=== PATIENT | female | born 1965 | race Caucasian/White ===

== ENCOUNTER → 2018-01-08 21:11 | Outpatient (CLI) | payer OTHER, SELFPAY ==
[2018-01-08 22:10] LABS: Thyroid Stim Hormone (TSH) 0.71 uIU/mL (0.358-3.74)
== END ==
PROVIDERS: Visit Provider Nurse Practitioner
DX: E03.9 Hypothyroidism, unspecified (principal)
CPT/HCPCS: 84443

== ENCOUNTER → 2018-05-12 06:58 | Outpatient (CLI) | payer OTHER, SELFPAY ==
[2018-05-12 18:17] VITALS: BMI 38.0
[2018-05-13 00:35] LABS: Absolute Lymphocyte Count 2.33 X10^3/ul (0.83-4.51); Absolute Neutrophil Count 2.8 X10^3/uL (2.0-7.7); Basophil# 0.03 X10^3/uL; Basophil% 0.5 % (0-1); Eosinophil# 0.14 X10^3/uL; Eosinophils% 2.4 % (0-5); Hematocrit 43.2 % (37-47); Hemoglobin 14.6 g/dl (12.0-15.0); Lymphocyte # 2.33 X10^3/ul (4.0); Mean Corp Hgb Conc 33.8 g/gl (32-36); Mean Corpuscular Hgb 32.1 pg (27.0-32.0); Mean Corpuscular Volume 94.9 fL (81-99); Mean Platelet Vol. 11.5 fl (6.2-12.0); Monocyte# 0.52 X10^3/uL; Monocyte% 8.9 % (0-10); Neutrophil # 2.79 X10^3/uL (2.7-7.7); Platelet Count 273 K/mm3 (150-450); RBC Distribution Width CV 12.1 % (11.6-14.6); RBC Distribution Width SD 41.3 fl (35.1-43.9); Red Blood Count 4.55 M/mm3 (4.2-5.4); White Blood Count 5.8 K/mm3 (4.4-11.0)
[2018-05-13 00:39] LABS: ALB/GLOB Ratio 1.2 RATIO (0.9-2.4); AST(SGOT) 20 U/L (15-37); Alanine Aminotransfer ALT/SGPT 31 U/L (13-56); Albumin, Serum 4.1 g/dL (3.2-5.0); Alkaline Phosphatase 68 U/L (45-117); Anion Gap 8 (5-15); BUN 10 mg/dL (7-18); Calcium,Total 8.5 mg/dL (8.5-10.1); Chloride 106 mmol/L (98-107); Cholesterol 210 mg/dL (200); Creatinine, Serum 0.84 mg/dL (0.55-1.02); EST Glomerular Filtration Rate 76 mL/min (>60); Est Glom Filt Rate - Afr Amer 92 mL/min (>60); Globulin 3.4 g/dL (2.2-4.2); Glucose 90 mg/dL (74-106); High Density Lipoprotein 73 mg/dL; Potassium 3.9 mmol/L (3.5-5.1); Protein, Total 7.5 g/dL (6.4-8.2); Sodium Level 138 mmol/L (136-145); Triglycerides 122 mg/dL; Very Low Density Lipoprotein 24 mg/dL (5-40)
[2018-05-13 00:39] LABS: POSITIVE COUNT NO; POSITIVE DIFFERENTIAL NO; POSITIVE MORPHOLOGY NO
--- OUTSIDE RECORDS SUMMARY | 2018-08-14 06:37 | XMS RPT_ITS ---
:1965 Author Organization [facility] Care Team Providers Name Role Phone PROVIDER, UNKNOWN Attending Unavailable PROVIDER, UNKNOWN Referring Unavailable Rasmussen, Bela Primary Care Unavailable Rasmussen, Bela Attending Unavailable PROVIDER, UNKNOWN Referring Unavailable Rasmussen, Bela Primary Care Unavailable Rasmussen, Bela ANIMAL NURSERY WORKER-C Attending Unavailable Primay Care Physicia, No Primary Care Unavailable Rasmussen, Bela ANIMAL NURSERY WORKER-C Referring Unavailable Rasmussen, Bela ANIMAL NURSERY WORKER-C Attending Unavailable Primay Care Physicia, No Primary Care Unavailable PROBLEMS PROBLEMS DATE TYPE CONDITION / CODE ATTENDING STATUS SOURCE 05/13/2018 Unknown Z00.00 - Encounter Samuel Rasmussen for general adult Bela ANIMAL NURSERY WORKER-C [facility] examination Repository without abnormal findings / Z00.00(ICD-10) 09/23/2017 Admitting Nontoxic single Grady, Active [facility] Diagnosis thyroid nodule / Bela System E04.1(ICD-10) Repository 09/16/2017 Admitting Hypertensive Unknown Active [facility] Diagnosis urgency / System I16.0(ICD-10) Repository 09/16/2017 Admitting Other specified Unknown Active [facility] Diagnosis disorders of nose System and nasal sinuses Repository / J34.89(ICD-10) 09/16/2017 Admitting Stress, not Unknown Active [facility] Diagnosis elsewhere System classified / Repository Z73.3(ICD-10) 09/16/2017 Admitting Essential Unknown Active [facility] Diagnosis (primary) System hypertension / Repository I10(ICD-10) 09/16/2017 Admitting Anxiety disorder, Unknown Active [facility] Diagnosis unspecified / System F41.9(ICD-10) Repository PROCEDURES PROCEDURES No Procedure Records FoundRESULTS RESULTS OFFICE VISIT Observed: 05/12/2018 Status: F Source: [place] 8:24 PM [facility] [address] [place] [address] OFFICE VISIT Date of Service: 05/12/18 MR#: [id number] Acct: [id number] Name: AHMET FISCHER Rep #: [id number] : 1965 Provider: JORGE LUIS Rasmussen Age/Sex: 52/F Location: [facility] Status: Signed Intake Vital Signs05/12/18 Height 5 ft 3 in 05/12/18 Weight: 215 lb Intake Visit Reasons: WORK PE Allergies Penicillins Allergy (Intermediate, Unverified 05/12/18 18:20) Hives Sulfa (Sulfonamide Antibiotics) Allergy (Intermediate, Unverified 05/12/18 18:20) fever, rash lisinopril Adverse Reaction (Severe, Verified 01/08/18 15:43) cough Medications losartan 100 mg tablet 100 mg PO QDAY #90 tab 01/08/18 [Rx Confirmed 01/08/18] valacyclovir 1 gram tablet 2,000 mg PO BID tab 01/08/18 [History Confirmed 01/08/18] levothyroxine 50 mcg tablet 50 mcg PO QDAY #90 tab 05/08/18 [Rx] thyroid (pork) 60 mg tablet 60 mg PO QDAY #90 tab 05/08/18 [Rx] PFSH Medical History Hypothyroid (Acute) Hypertension (Chronic) Family History Father Heart disease valve replacement and aneurysm Grandmother Heart disease maternal Grandfather Heart disease paternal Other Non-Hodgkin lymphoma HPI HPI (General) HPI HPI: AHMET FSICHER, is a 52 F who presents to the office today for well exam for work ROS Const Constitutional: No anorexia, body ache, chills, excessive sweating, fatigue, fever(s), frequent falls, headache(s), decreased energy, malaise, night sweats, snoring, weakness, weight change, sleep problems, abnormal sleep pattern, change in appetite or other Eyes Eyes: No blurry vision, change in vision, double vision, discharge, dry eyes, bulging eyes, floaters, visual disturbances, eye pain, light sensitivity, spots in vision, tunnel vision or other ENT ENT: No headache(s), abnormal hearing, ear pain, ear discharge, ear pressure, hearing loss, tinnitus, dizziness/vertigo, balance problems, nosebleed/epistaxis, nasal congestion, nasal obstruction, nose pain, sinus pressure, sinus pain, nasal discharge, post nasal drip, facial pain, dental pain, dry mouth, difficulty swallowing, bad breath, hoarseness, lip swelling, mouth lesions, mouth pain, neck pain, sore throat, tongue swelling, throat swelling or other Resp Respiratory: No snoring, cough, change in phlegm color, chest congestion, excessive phlegm production, hemoptysis, pain on inspiration, shortness of breath, pain with cough, stridor, wheezing or other Cardio Cardiology: No excessive sweating, chest pain at rest, chest pain with exertion, leg pain with exertion, shortness of breath, dyspnea on exertion, generalized swelling, irregular heart rhythm, lightheadedness, orthopnea, radiating jaw, neck or arm pain, fast heart rate, slow heart rate, palpitations or other Gastro GI: No other, No Difficulty Swallowing, No abdominal pain, No belching, No bloating, No change in bowel habits, No change in stool character, No coffee ground emesis, No constipation, No cramping, No diarrhea, No heartburn, No feeling full early, No excessive flatus, No incontinent of stools, No Vomiting blood/hematemesis, No Blood in stool, No loose stools, No Black,tarry stools, No nausea/dyspepsia, No pain with swallowing, No vomiting, No hemorrhoids, No rectal pain Genitourinary: No urinary frequency, difficulty urinating, burning urination, painful urination, urinary urgency or blood in urine Musc Musculoskeletal: No neck pain, abnormal walking, joint pain, back pain, deformity, joint swelling, limited range of motion, loss of height, muscle cramps, muscle weakness, decreased muscle mass, body aches, numbness, radiating pain into limb, stiffness, tingling or other Skin Skin: No acne, hair loss, change in hair, nail changes, boil, change in skin color, dry skin, redness, excessive hair growth, yellowing of the skin, lesions, itching, rash, skin pain, skin ulcer, sores, skin swelling, wounds or other Breast Breast: No other Neuro Neurology: No frequent falls, headache(s), weakness, visual disturbances, abnormal hearing, abnormal walking, numbness, tingling, abnormal movements, abnormal speech, behavioral changes, confusion, unsteady gait/balance, dizziness, lack of coordination, loss of vision, memory loss, restless legs, fainting, tremor(s) or other Psych Psychiatric: No abnormal sleep pattern, No change in appetite, No behavioral changes, No confusion, No memory loss, No lack of enjoyment, No anxiety, No depression, No difficulty concentrating, No hopelessness, No irritability, No mood swings, No panic attacks, No paranoia, No Thoughts of harming yourself/Others, No hallucinations, No other Endo Endo: No excessive sweating, No fatigue, No other Aller/Imm Allergy/Immunologic: No lip swelling, tongue swelling, throat swelling, wheezing or itchy eyes Exam Const Constitutional: Yes cooperative, Yes healthy appearing Orientation: Yes alert, awake and oriented x3 HENMT Head: Yes normocephalic Ear: Yes hearing grossly normal bilaterally Neck Neck: normal visual inspection Thyroid: thyroid normal Eyes General: Yes appearance normal, both eyes and all related structures Chest Chest palpation AND inspection: Yes normal inspection of the chest Resp Effort AND Inspection: No stridor Auscultation: Yes clear to auscultation bilaterally Cardio Palpitation: Yes normal PMI Rate: Yes regular rate Rhythm: Yes regular rhythm GI Inspection: Yes normal to inspection Auscultation: Yes normal bowel sounds Rectal Exam: No hemorrhoids Musc Cervical Spine: Yes cervical ROM normal Thoracic/Lumbar Spine: Yes thoracic and lumbar spine normal to inspection Skin General: no rashes or lesions noted Lesions: Yes no lesions Extrem General: Yes normal to inspection Neuro General: Yes alert and oriented x3 Motor: No weakness Psych Appearance: Positive grossly normal Mood: Positive congruent mood Affect: Positive normal affect Assessment AND Plan Problems 1. Wellness examination Z00.00 Patient Instructions forms filled out will call with the results Orders Orders: Coding Level of Care Code Off vis,est,level 3 Diagnoses Wellness examination Z00.00 05/12/182023 <Electronically signed by Bela QUINTEROS> Date Bela Rasmussen ANIMAL NURSERY WORKERJeanineC CC: COMPREHENSIVE METABOLIC Collected: 05/12/2018 Status: F Source: [place] 7:45 PM [facility] REPOSITORY TYPE CODE TESTS RESULT OUT OF RANGE REFERENCE UNITS LAB L501.0100 74-106 mg/dL Normal GLU 90 Result Comment: Please note revised GLUCOSE reference range effective 2017. LAB L501.1000 7-18 mg/dL Normal BUN 10 LAB L501.1100 0.55-1.02 mg/dL Normal CREAT,SERUM 0.84 Result Comment: The validity of the calculated GFR AND GFRAA in patients over 70 years has not been determined. Clinical correlation is essential. LAB L501.1110 >60 mL/min Normal EST GFR 76 Result Comment: Non- GFR Calc LAB L501.1115 >60 mL/min Normal EST GFR - AA 92 Result Comment: GFR Calc LAB L501.1300 10-20 RATIO Normal BUN/CRE 12.0 LAB L501.1500 6.4-8.2 g/dL T Normal PROT 7.5 LAB L501.1800 3.2-5.0 g/dL Normal ALB 4.1 LAB L501.1950 2.2-4.2 g/dL Normal GLOB 3.4 LAB L501.2000 0.9-2.4 RATIO Normal A/G 1.2 LAB L501.2200 8.5-10.1 mg/dL CA Normal 8.5 LAB L501.4100 15-37 U/L Normal AST 20 LAB L501.4305 45-117 U/L Normal ALK P 68 LAB L501.4405 13-56 U/L Normal ALT 31 LAB L501.4600 0.20-1.00 mg/dL T Normal BILI 0.40 LAB L501.5300 136-145 mmol/L NA Normal 138 LAB L501.5600 3.5-5.1 mmol/L K Normal 3.9 LAB L501.5900 98-107 mmol/L CL Normal 106 LAB L501.6100 21.0-32.0 mmol/L Normal CO2 24.0 LAB L501.6200 5-15 Normal GAP 8 Performed By: #### L500.4050, L500.4100 #### [facility] [address] [place], [address] LIPID PROFILE Collected: 05/12/2018 Status: F Source: [place] 7:45 PM [facility] REPOSITORY TYPE CODE TESTS RESULT OUT OF RANGE REFERENCE UNITS LAB L501.4900 200 mg/dL High CHOL 210 Result Comment: <200 mg/dL Desirable 200-240 mg/dL Borderline >240 mg/dL High Risk LAB L501.5000 mg/dL Normal TRIG 122 Result Comment: The drugs N-Acetylcysteine and Metamizole may falsely depress this assay. Serum Triglycerides Reference Interval Normal <150 mg/dL Borderline high 150 - 199 mg/dL High 200 - 499 mg/dL Very High > or = 500 mg/dL LAB L501.6400 mg/dL Normal HDL 73 Result Comment: The drugs N-Acetylcysteine and Metamizole may falsely depress this assay. Reference Range HDL <40 mg/dL Low HDL Cholesterol HDL >or= 60 mg/dL High HDL Cholesterol LAB L501.6500 0-130 mg/dL Normal LDL 113 LAB L501.6600 5-40 mg/dL Normal VLDL 24 Performed By: #### L500.4050, L500.4100 #### [facility] [address] [place], [address] CBC W/DIFF, AUTOMATED Collected: 05/12/2018 Status: F Source: [place] 12:00 AM [facility] REPOSITORY TYPE CODE TESTS RESULT OUT OF RANGE REFERENCE UNITS LAB L100.1000 4.4-11.0 K/mm3 Normal WBC 5.8 LAB L100.1200 4.2-5.4 M/mm3 Normal RBC 4.55 LAB L100.1300 12.0-15.0 g/dl Normal HGB 14.6 LAB L100.1400 37-47 % Normal HCT 43.2 LAB L100.1500 81-99 fL Normal MCV 94.9 LAB L100.1600 27.0-32.0 pg High MCH 32.1 LAB L100.1700 32-36 g/gl Normal MCHC 33.8 LAB L100.1810 11.6-14.6 % Normal RDW CV 12.1 LAB L100.1820 35.1-43.9 fl Normal RDW SD 41.3 LAB L100.1900 150-450 K/mm3 Normal PLT 273 LAB L100.2000 6.2-12.0 fl Normal MPV 11.5 LAB L100.2100 47-70 % Normal NEUT% 48.0 LAB L100.2200 19-41 % Normal LY% 40.0 LAB L100.2300 0-10 % Normal MONO% 8.9 LAB L100.2400 0-5 % Normal EO% 2.4 LAB L100.2500 0-1 % Normal BASO% 0.5 LAB L100.2550 0.0-0.9 % Normal IM GRAN % 0.200 Result Comment: IG% - Immature Granulocytes (promyelocytes, myelocytes and metamyelocytes) > 1% indicates that a LEFT SHIFT is Present. LAB L100.2620 2.0-7.7 X10 3/uL Normal Absolute Neut 2.8 LAB L100.2720 0.83-4.51 X10 3/ul Normal Absolute Lymph 2.33 Performed By: #### L100.0100 #### [facility] [address] [place], [address] OFFICE VISIT Observed: 01/08/2018 Status: F Source: [place] 10:30 PM [facility] [address], [place] [id number] OFFICE VISIT Date of Service: 01/08/18 MR#: [id number] Acct: [id number] Name: Ahmet Fischer Rep #: [id number] : 1965 Provider: JORGE LUIS Rasmussen Age/Sex: 52/F Location: [facility] Status: Signed Intake Vital Signs01/08/18 Height 5 ft 3.5 in 01/08/18 Weight: 196 lb Intake Visit Reasons: F/U MED AND BLOOD Accompanied by: self Is patient in pain?: No Allergies lisinopril Adverse Reaction (Severe, Verified 01/08/18 15:43) cough Medications levothyroxine 50 mcg tablet 50 mcg PO QDAY 01/08/18 [History Confirmed 01/08/18] losartan 100 mg tablet 100 mg PO QDAY #90 tab 01/08/18 [Rx Confirmed 01/08/18] thyroid (pork) 60 mg tablet 60 mg PO QDAY 01/08/18 [History Confirmed 01/08/18] valacyclovir 1 gram tablet 2,000 mg PO BID tab 01/08/18 [History Confirmed 01/08/18] [facility] Medical History Hypothyroid (Acute) Hypertension (Chronic) Family History Father Heart disease valve replacement and aneurysm Grandmother Heart disease maternal Grandfather Heart disease paternal Other Non-Hodgkin lymphoma HPI HPI (General) HPI HPI: Ahmet Fischer, is a 52 F who presents to the office today for labs and go over her BP . That has done well on the losartan did not tolerate the Lisinopril The fluttering in the chest is gone c/o of a strain and burning in the L top of the shoulder into the L side of the neck ROS Const Constitutional: Positive for other (hot flashes); no anorexia, body ache, chills, excessive sweating, fatigue, fever(s), frequent falls, headache(s), decreased energy, malaise, night sweats, snoring, weakness, weight change, sleep problems, abnormal sleep pattern or change in appetite Eyes Eyes: No blurry vision, change in vision, double vision, discharge, dry eyes, bulging eyes, floaters, visual disturbances, eye pain, light sensitivity, spots in vision, tunnel vision or other ENT ENT: No headache(s), abnormal hearing, ear pain, ear discharge, ear pressure, hearing loss, tinnitus, dizziness/vertigo, balance problems, nosebleed/epistaxis, nasal congestion, nasal obstruction, nose pain, sinus pressure, sinus pain, nasal discharge, post nasal drip, facial pain, dental pain, dry mouth, difficulty swallowing, bad breath, hoarseness, lip swelling, mouth lesions, mouth pain, neck pain, sore throat, tongue swelling, throat swelling or other Resp Respiratory: No snoring, cough, change in phlegm color, chest congestion, excessive phlegm production, hemoptysis, pain on inspiration, shortness of breath, pain with cough, stridor, wheezing or other Cardio Cardiology: No excessive sweating, chest pain at rest, chest pain with exertion, leg pain with exertion, shortness of breath, dyspnea on exertion, generalized swelling, irregular heart rhythm, lightheadedness, orthopnea, radiating jaw, neck or arm pain, fast heart rate, slow heart rate, palpitations or other Gastro GI: Yes other (hot flashes), No Difficulty Swallowing, No abdominal pain, No belching, No bloating, No change in bowel habits, No change in stool character, No coffee ground emesis, No constipation, No cramping, No diarrhea, No heartburn, No feeling full early, No excessive flatus, No incontinent of stools, No Vomiting blood/hematemesis, No Blood in stool, No loose stools, No Black,tarry stools, No nausea/dyspepsia, No pain with swallowing, No vomiting, No hemorrhoids, No rectal pain Genitourinary: No urinary frequency, difficulty urinating, burning urination, painful urination, urinary urgency or blood in urine Musc Musculoskeletal: No neck pain, abnormal walking, joint pain, back pain, deformity, joint swelling, limited range of motion, loss of height, muscle cramps, muscle weakness, decreased muscle mass, body aches, numbness, radiating pain into limb, stiffness, tingling or other Skin Skin: No acne, hair loss, change in hair, nail changes, boil, change in skin color, dry skin, redness, excessive hair growth, yellowing of the skin, lesions, itching, rash, skin pain, skin ulcer, sores, skin swelling, wounds or other Breast Breast: No other Neuro Neurology: No frequent falls, headache(s), weakness, visual disturbances, abnormal hearing, abnormal walking, numbness, tingling, abnormal movements, abnormal speech, behavioral changes, confusion, unsteady gait/balance, dizziness, lack of coordination, loss of vision, memory loss, restless legs, fainting, tremor(s) or other Psych Psychiatric: No abnormal sleep pattern, No change in appetite, No behavioral changes, No confusion, No memory loss, No lack of enjoyment, No anxiety, No depression, No difficulty concentrating, No hopelessness, No irritability, No mood swings, No panic attacks, No paranoia, No Thoughts of harming yourself/Others, No hallucinations, No other Endo Endo: No excessive sweating, No fatigue, No other Aller/Imm Allergy/Immunologic: No lip swelling, tongue swelling, throat swelling, wheezing or itchy eyes Exam Const Constitutional: Yes cooperative, Yes healthy appearing Orientation: Yes alert, awake and oriented x3 HENMT Head: Yes normocephalic Ear: Yes hearing grossly normal bilaterally Neck Neck: normal visual inspection Thyroid: thyroid normal Eyes General: Yes appearance normal, both eyes and all related structures Pupils: Yes PERRLA Chest Chest palpation AND inspection: Yes normal inspection of the chest Resp Effort AND Inspection: No stridor Auscultation: Yes clear to auscultation bilaterally Cardio Palpitation: Yes normal PMI Rate: Yes regular rate Rhythm: Yes regular rhythm GI Inspection: Yes normal to inspection Auscultation: Yes normal bowel sounds Rectal Exam: No hemorrhoids Musc Cervical Spine: Yes cervical ROM normal Thoracic/Lumbar Spine: Yes thoracic and lumbar spine normal to inspection Skin General: no rashes or lesions noted Lesions: Yes no lesions Extrem General: Yes normal to inspection Neuro General: Yes alert, oriented x3 and CN's II-XI intact bilaterally Cranial Nerves: Yes PERRLA and CN's II-XI intact bilaterally Cognition: Yes normal cognition Speech: Yes speech normal Gait: Yes normal gait Motor: No weakness Sensory Exam: Yes no sensory deficits noted and DTR'S Normal Psych Appearance: Positive grossly normal Mood: Positive congruent mood Affect: Positive normal affect Assessment AND Plan Problems 1. Hypothyroid E03.9 2. Hypertension I10 Patient Instructions take the losartan for the BP Will call with the results of the labs for the levothyroxine regulating dose Orders Orders: Medications New: 01/08/182229 <Electronically signed by Bela QUINTEROS> Date Bela QUINTEROS CC: THYROID STIM HORMONE Collected: 01/08/2018 Status: F Source: [place] (TSH) 4:05 PM [facility] REPOSITORY TYPE CODE TESTS RESULT OUT OF RANGE REFERENCE UNITS LAB L501.9520 0.358-3.74 uIU/mL Normal TSH 0.71 Performed By: #### L501.9520 #### [facility] [address] [place], [address] THYROID/PARATHYROID Observed: 09/24/2017 Status: F Source: [facility] 1:55 PM [facility] REPOSITORY Patient Name: AHMET FISCHER Ultrasound Exam Date/Time 09/23/2017 16:32:40 EDT Exam US Parathyroid Ordering Physician TOMER RASUMSSEN DORA L Accession Number [id number] CPT4 Codes 26887 () Reason For Exam THYROID DISEASE Report Ultrasound thyroid HISTORY: Thyromegaly, hypertension The right lobe of thyroid gland measures 0.8 x 0.9 x 4.0 cm. Left lobe measures 0.8 x 1.1 x 4.2 cm. Nodule 1: Size: 4 x 6 x 13 mm Composition: Solid Echogenicity: Hypoechoic Margins: Smooth and ill-defined Echogenic foci: None TI-RADS points: Four Nodule 2: Size: 3 x 5 x 8 mm Composition: Solid Echogenicity: Hypoechoic Margins: Ill-defined Echogenic foci: None TI-RADS points: Four Impression: Two nodules in the thyroid gland as described above. Follow-up ultrasound of the larger one in the right lobe is recommended. Report Dictated on Final Dictating Physician: MD BARRIENTOS MALAY Signed Date and Time: 09/24/2017 2:03 pm Signed by: MD BARRIENTOS MALAY Transcribed Date and Time: 09/24/2017 2:04 CR CHEST PORTABLE Observed: 09/16/2017 Status: F Source: [facility] 12:43 PM SYSTEM REPOSITORY Patient Name: AHMET FISCHER Diagnostic Radiology Exam Date/Time 09/16/2017 12:18:47 EDT Exam CR Chest Portable Ordering Physician MD ADRIANNE, BILL Accession Number [id number] CPT4 Codes 59720 () Reason For Exam shortness of breath Report PORTABLE CHEST CLINICAL INDICATION: Dyspnea. COMPARISON: None. TECHNIQUE: Portable AP chest. FINDINGS: Monitoring leads are identified. The heart, mediastinum, lamar, lungs and pleural spaces are normal. No osseous abnormality. IMPRESSION: No acute cardiopulmonary abnormality. Report Dictated on Final Dictating Physician: XU PHILIP DO, I Signed Date and Time: 09/16/2017 12:44 pm Signed by: XU PHILIP DO, I Transcribed Date and Time: 09/16/2017 12:45 ALLERGIES ALLERGIES DATE TYPE / CODE NAME / CODE REACTION SEVERITY SOURCE 05/12/2018 Drug Penicillins/F Hives MO [facility] Allergy/4160 [id number](RXN Hospital 63961(SNOMED ORM) Repository CT) 05/12/2018 Drug Sulfa fever, rash MO [facility] Allergy/4160 (Sulfonamide Hospital 66948(SNOMED Antibiotics)/ Repository CT) [id number](RX NORM) 01/08/2018 Drug lisinopril/F0 cough SV [facility] Allergy/4160 [id number](RXNO Hospital 02315(SNOMED RM) Repository CT) ENCOUNTERS ENCOUNTERS ADMIT/DISCHARGE ACCOUNT NUMBER ADMITTING ENCOUNTER LOCATION SOURCE CLASS 05/12/2018 [id number] [facility] ding:[facility]SPEC Repository 01/08/2018 [id number] [facility] ding:[facility] Repository 09/23/2017 [id number] [facility] Repository 09/16/[id number] [facility] [place] [address] EDRoom: System [id number]: Repository [id number] PAYERS PAYERS ENCOUNTER GUARANTOR PAYER SUBSCRIBER SOURCE 05/12/2018 AHMET [id number] MARY [facility]: [address], [place] Number: Repository [id number]: 330 [id number] [phone] () Date:[id number] [address], [place] [address]JO: 05/12/2018 Secondary NOT GIVENUNK [place] Insurance:SELF PAY [facility] Number: Effective Repository Date:2018-05-12 01/08/2018 AHMET FISCHER6768 MARY [facility] HEMM[facility]DOB: [address], [place] Number: Repository [id number]: 330 [id number] [phone] () Date:[id number] [address], [place] [address]IJ: 01/08/2018 Secondary NOT GIVENUNK [place] Insurance:SELF PAY [facility] Number: Effective Repository Date:2018-01-08 [facility]DOB: System [id number] [facility] [id number] [facility] Number: [place] Date: [id number]: () 09/16/2017 [facility]:United HemmingDOB: System [id number] [facility] [id number] [facility] Number: [place] Date: [address]Vqn: ()
== END ==
PROVIDERS: Referring Provider Nurse Practitioner; Visit Provider Nurse Practitioner
DX: Z00.00 Encounter for general adult medical examination without abnormal findings (principal)
CPT/HCPCS: 80053; 80061; 85025

== ENCOUNTER → 2019-05-14 21:09 | Outpatient (CLI) | payer OTHER, SELFPAY ==
[2019-05-14 16:04] VITALS: BMI 39.4
[2019-05-14 21:16] LABS: Absolute Lymphocyte Count 2.41 X10^3/uL (0.83-4.51); Absolute Neutrophil Count 4.5 X10^3/uL (2.0-7.7); Basophil# 0.04 X10^3/uL; Basophil% 0.5 % (0-1); Eosinophil# 0.26 X10^3/uL; Eosinophils% 3.4 % (0-5); Hematocrit 41.1 % (37-47); Hemoglobin 13.9 g/dL (12.0-15.0); Lymphocyte # 2.41 X10^3/ul (4.0); Lymphocyte % 31.1 % (19-41); Mean Corp Hgb Conc 33.8 g/dL (32-36); Mean Corpuscular Volume 94.7 fL (81-99); Monocyte# 0.59 X10^3/uL; Monocyte% 7.6 % (0-10); NRBC Flagged by Analyzer 0 % (0-5); Neutrophil # 4.45 X10^3/uL (2.7-7.7); Neutrophil % 57.3 % (47-70); Platelet Count 258 K/mm3 (150-450); RBC Distribution Width CV 11.9 % (11.6-14.6); RBC Distribution Width SD 41.7 fl (35.1-43.9); Red Blood Count 4.34 M/mm3 (4.2-5.4); White Blood Count 7.8 K/mm3 (4.4-11.0)
[2019-05-14 21:39] LABS: ALB/GLOB Ratio 1.3 RATIO (0.9-2.4); AST(SGOT) 23 U/L (15-37); Alanine Aminotransfer ALT/SGPT 38 U/L (13-56); Albumin, Serum 4.1 g/dL (3.2-5.0); Alkaline Phosphatase 68 U/L (45-117); Anion Gap 5 (5-15); BUN 13 mg/dL (7-18); BUN/Creat Ratio 13.2 RATIO (10-20); Calcium,Total 9.3 mg/dL (8.5-10.1); Chloride 109 mmol/L (98-107); Cholesterol 209 mg/dL (200); Creatinine, Serum 0.98 mg/dL (0.55-1.02); EST Glomerular Filtration Rate 63 mL/min (>60); Est Glom Filt Rate - Afr Amer 76 mL/min (>60); Globulin 3.2 g/dL (2.2-4.2); Glucose 97 mg/dL (74-106); High Density Lipoprotein 76 mg/dL; Potassium 4.1 mmol/L (3.5-5.1); Protein, Total 7.3 g/dL (6.4-8.2); Sodium Level 141 mmol/L (136-145); Thyroid Stim Hormone (TSH) 0.23 uIU/mL (0.358-3.74); Triglycerides 127 mg/dL; Very Low Density Lipoprotein 25 mg/dL (5-40)
== END ==
PROVIDERS: Referring Provider Nurse Practitioner; Visit Provider Nurse Practitioner
DX: I10 Essential (primary) hypertension (principal); E03.9 Hypothyroidism, unspecified
CPT/HCPCS: 80053; 80061; 84443; 85025

== ENCOUNTER → 2020-01-07 21:12 | Outpatient (CLI) | payer OTHER, SELFPAY ==
[2020-01-07 17:14] VITALS: BMI 36.8
[2020-01-07 21:41] LABS: Free T3 3.2 pg/mL (2.18-3.98); Thyroid Stim Hormone (TSH) 0.14 uIU/mL (0.358-3.74)
== END ==
PROVIDERS: Referring Provider Nurse Practitioner; Visit Provider Nurse Practitioner
DX: E03.9 Hypothyroidism, unspecified (principal)
CPT/HCPCS: 84443; 84481

== ENCOUNTER → 2021-01-15 21:23 | Outpatient (CLI) | payer OTHER, SELFPAY ==
[2021-01-15 21:34] LABS: Absolute Lymphocyte Count 2.24 X10^3/uL (0.83-4.51); Absolute Neutrophil Count 3.5 X10^3/uL (2.0-7.7); Basophil# 0.05 X10^3/uL; Basophil% 0.8 % (0-1); Eosinophil# 0.21 X10^3/uL; Eosinophils% 3.2 % (0-5); Hematocrit 39.9 % (37-47); Hemoglobin 13.5 g/dL (12.0-15.0); Lymphocyte # 2.24 X10^3/ul (0.83-4.51); Lymphocyte % 34.4 % (19-41); Mean Corp Hgb Conc 33.8 g/dL (32-36); Mean Corpuscular Hgb 31.3 pg (27.0-32.0); Mean Corpuscular Volume 92.6 fL (81-99); Monocyte# 0.55 X10^3/uL; Monocyte% 8.4 % (0-10); NRBC Flagged by Analyzer 0 % (0-5); Neutrophil # 3.45 X10^3/uL (2.7-7.7); Platelet Count 257 K/mm3 (150-450); RBC Distribution Width CV 12.4 % (11.6-14.6); RBC Distribution Width SD 42.6 fl (35.1-43.9); Red Blood Count 4.31 M/mm3 (4.2-5.4); White Blood Count 6.5 K/mm3 (4.4-11.0)
[2021-01-15 22:02] LABS: ALB/GLOB Ratio 1.2 RATIO (0.9-2.4); AST(SGOT) 20 U/L (15-37); Alanine Aminotransfer ALT/SGPT 37 U/L (13-56); Albumin, Serum 3.7 g/dL (3.2-5.0); Alkaline Phosphatase 66 U/L (45-117); Anion Gap 7 (5-15); BUN 9 mg/dL (7-18); BUN/Creat Ratio 12.2 RATIO (10-20); Calcium,Total 8.3 mg/dL (8.5-10.1); Chloride 108 mmol/L (98-107); Cholesterol 190 mg/dL (200); Creatinine, Serum 0.74 mg/dL (0.55-1.02); EST Glomerular Filtration Rate 87 mL/min (>60); Est Glom Filt Rate - Afr Amer 105 mL/min (>60); Globulin 3.2 g/dL (2.2-4.2); Glucose 97 mg/dL (74-106); High Density Lipoprotein 66 mg/dL; Potassium 3.6 mmol/L (3.5-5.1); Protein, Total 6.9 g/dL (6.4-8.2); Sodium Level 138 mmol/L (136-145); Triglycerides 79 mg/dL; Very Low Density Lipoprotein 16 mg/dL (5-40)
== END ==
PROVIDERS: Visit Provider Nurse Practitioner
DX: I10 Essential (primary) hypertension (principal); E03.9 Hypothyroidism, unspecified
CPT/HCPCS: 80053; 80061; 84443; 85025